=== PATIENT | male | born 1970 | race Caucasian/White ===

== ENCOUNTER 2019-08-01 11:57 | Emergency (ER) | payer BC ==
[2019-08-01] MEDS ORDERED: XYLOCAINE 1% HCL 20 ML MDV IJ ONE (11:58)
[2019-08-01 12:28] VITALS: BP 149/88; PULSE 90; O2SAT 96
--- NOTE | 2019-08-01 12:38 | ERPHSYRPT ---
- History of Present Illness Time Seen by Provider: 08/01/19 12:36 Source: patient Exam Limitations: no limitations Patient Subjective Stated Complaint: pt reports dog bite approx 1145 today, states he was outside when two dogs present became agressive toward one another and he was trying to hold one of the dogs back when it turned and bit him on the left forearm. reports the dog is a 180lb mastiff. pt reports that a friend is the farm owner operator and the animal is up to date on vaccinations. Triage Nursing Assessment: pt is aox3, pupils perrl, afebrile, resps easy and non labored, radial pulses strong and equal, cap refill < 3 seconds, pt skin pink warm dry. several abrasions noted to the left forearm, wound is on the dorsal and volar aspect of the arm. two lacerations present, one measuring approx 2 cm and then other approx 1 cm. wounds are well approximated, minimal bleeding noted at this time. pt sensation and ROM intact. Physician History: Mr Oliver is a 48 years old male came to ER reports dog bite approximately 1145 today, states he was outside when two dogs present became agressive toward one another and he was trying to hold one of the dogs back when it turned and bit him on the left forearm. reports the dog is a 180lb mastiff. pt reports that a friend is the farm owner operator and the animal is up to date on vaccinations. Timing/Duration: today Severity: moderate Associated Symptoms: denies symptoms Allergies/Adverse Reactions: No Known Drug Allergies Allergy (Unverified 08/01/19 12:28) Hx Tetanus, Diphtheria Vaccination/Date Given: Yes Hx Influenza Vaccination/Date Given: No Hx Pneumococcal Vaccination/Date Given: No Immunizations Up to Date: Yes - Review of Systems Constitutional: No Fever, No Chills Eyes: No Symptoms Ears, Nose, & Throat: No Symptoms Respiratory: No Symptoms, No Cough, No Dyspnea Cardiac: No Symptoms, No Chest Pain, No Edema, No Syncope Abdominal/Gastrointestinal: No Symptoms, No Abdominal Pain, No Nausea, No Vomiting, No Diarrhea Genitourinary Symptoms: No Symptoms, No Dysuria Musculoskeletal: No Symptoms, No Back Pain, No Neck Pain Skin: Other (dog bite krishna on left forearm), No Rash Neurological: No Dizziness, No Focal Weakness, No Sensory Changes Psychological: No Symptoms Endocrine: No Symptoms All Other Systems: Reviewed and Negative - Past Medical History Pertinent Past Medical History: Yes Cardiac History: Hypertension - Past Surgical History Past Surgical History: Yes Gastrointestinal: Cholecystectomy - Social History Smoking Status: Never smoker Exposure to second hand smoke: No Drug Use: none Patient Lives Alone: No - Nursing Vital Signs Nursing Vital Signs: Initial Vital Signs Temperature 98.5 F 08/01/19 12:07 Pulse Rate 90 08/01/19 12:07 Respiratory Rate 20 08/01/19 12:07 Blood Pressure 149/88 08/01/19 12:07 O2 Sat by Pulse Oximetry 96 08/01/19 12:07 Pain Scale Pain Intensity 0 - Physical Exam General Appearance: no apparent distress Eye Exam: PERRL/EOMI Ears, Nose, Throat Exam: normal ENT inspection Neck Exam: normal inspection Respiratory Exam: normal breath sounds Cardiovascular Exam: regular rate/rhythm Gastrointestinal/Abdomen Exam: soft Extremity Exam: lacerations (on left forearm) Neurologic Exam: alert, oriented x 3 SpO2: 96 Procedures - Laceration/Wound Repair Left Other Wound Location: Left (lower forearm) Wound Length (cm): 4 Wound's Depth, Shape: superficial Wound Explored: contaminated Irrigated: Yes Hibiclens Prep: Yes Anesthesia: local, 1% Lidocaine Volume Anesthetic (ccs): 4 Wound Debrided: minimal Wound Repaired With: sutures Suture Size/Type: 4-0, prolene Number of Sutures: 4 Layer Closure?: No Sterile Dressing Applied?: Yes Left Hip Wound Location: Left (forearm) Wound Length (cm): 1 Wound's Depth, Shape: superficial Wound Explored: contaminated Irrigated: Yes Hibiclens Prep: Yes Anesthesia: local, 1% Lidocaine Volume Anesthetic (ccs): 1 Wound Debrided: minimal Wound Repaired With: sutures Suture Size/Type: 4-0, prolene Number of Sutures: 2 Layer Closure?: No - Course Nursing assessment & vital signs reviewed: Yes - Progress Progress: improved Counseled pt/family regarding: diagnosis, need for follow-up (sutures removal in 10 days) - Departure Departure Disposition: Home Clinical Impression: Dog bite of forearm Qualifiers: Encounter type: initial encounter Laterality: left Qualified Code(s): S51.852A - Open bite of left forearm, initial encounter; W54.0XXA - Bitten by dog, initial encounter Condition: Stable Critical Care Time: No Referrals: MADELINE MONTIEL MD [Primary Care Provider] - Instructions: Animal Bites (DC) Additional Instructions: LACERATION CARE Sutures removal in 10 days 1. Do not use peroxide, merthiolate, alcohol, or betadine. 2. Keep wound clean and dry. 3. Change dressing if it becomes wet or soiled. 4. If you must work, wear protective covering. 5. You may return to the emergency department or see your family physician for suture removal. 6. See your family physician or return to the emergency department for any of the following signs or symptoms: A. Redness B. Swelling C. Discolored drainage D. Red streaks E. Elevated temperature F. Other signs of infection Discharge/Care Plan HAYDEN OLIVER was seen on 08/01/19 in the Emergency Room. The patient was counseled regarding Diagnosis,Lab results, Imaging studies, need for follow up and when to return to the Emergency Room. Prescriptions given: Discharge Note I have spoken with the patient and/or caregivers. I have explained the patient' s condition, diagnosis and treatment plan based on the information available to me at this time. I have answered the patient's and/or caregiver's questions and addressed any concerns. The patient and/or caregivers have as good understanding of the patient's diagnosis, condition and treatment plan as can be expected at this point. The vital signs have been stable. The patient's condition is stable and appropriate for discharge from the emergency department. The patient will pursue further outpatient evaluation with the primary care physician or other designated or consulting physician as outlined in the discharge instructions. The patient and/or caregivers are agreeable to this plan of care and follow-up instructions have been explained in detail. The patient and/or caregivers have received these instruction. The patient/and or caregivers are aware that any significant change in condition or worsening of symptoms should prompt an immediate return to this or the closest emergency department or call 911. HAYDEN OLIVER was seen on 08/01/19 n the Emergency Room. At that time you were treated for an emergent condition, during your visit Laboratory, Radiology and/or other procedures may have been ordered. It is very important that you follow-up with your Primary Care Physician MADELINE MONTIEL within the next 24-48 hours to review your Emergency Room visit and the final results of testing that was ordered. Some test results such as Urine Cultures, Blood Cultures, and other cultures if ordered will not be finalized for 24-48 hours. If you do not have a Primary Care Provider please call the medical records department at [phone] ext [phone] to obtain a copy of your results or you may sign into our patient portal to obtain these results by visiting us @ [email or web address] and completing the following steps: 1. Click on the Patient Portal link 2. Click the Patient Self Enrollment Link to complete the enrollment form and entering your 3. Once the enrollment form is completed you will receive an email with a temporary ID and password at the email address you provided. 4. Next choose a user name and password. Your user name must be at least 4 characters long and your password must be at least 4 characters long. 5. Choose a security question from the list and provide your answer to the question. If you already have signed into the Health Portal you may access your Health Care Information 19/05 by the following steps: 1. Login to our website @ [email or web address] 2. Enter your original user name and password. FAQS The [facility] Health Portal is an online tool that contains your Lab Results, Radiology Reports, Visit History, Discharge Instructions and Health Summary Lab and Radiology Results will not be available for 72 hours on the portal. The Portal is a secure site, passwords are encryted and URLs are re-written so they cannot be copied and pasted. You and authorized family members are the only ones who can access your Portal. Also there is a timeout feature that protects your information if you leave the Portal page open. If you have technical difficulty please use the Contact Us link on the page this will allow you to submit any questions you have regarding the Portal or you may contact the Medical Record Department at [phone] ext [phone]. Prescriptions: Cephalexin Mh 500 mg [Keflex 500 mg] 500 mg PO Q6H #40 capsule
[2019-08-01] MEDS ORDERED: Rocephin 1000 MG INJ IM ONE (13:04)
[2019-08-01] MEDS ORDERED: Adacel Vial IM ONE ×2 (13:04→13:08)
[2019-08-01] MEDS ORDERED: Rocephin 500 MG INJ ONE ×2 (13:08→13:25)
== END 2019-08-01 13:52 | disposition home or self-care (01) ==
LOC: ED 11:57
DX: S51.852A Open bite of left forearm, initial encounter (principal); W54.0XXA Bitten by dog, initial encounter; Z23 Encounter for immunization; A35 Other tetanus
CPT/HCPCS: 12002; 90471; 90715; 96372; 99284; J0696